=== PATIENT | female | born 1960 | race Caucasian/White ===

== ENCOUNTER → 2020-12-09 | Outpatient (CLI) | payer SELFPAY ==
--- NOTE | 2020-12-10 12:04 | MM ---
Reason for exam: clinical finding. Last mammogram was performed 6 years and 4 months ago. History: Took hormonal contraceptives for 5 years beginning at age 21. Indicated problem(s): lump or thickening in the right breast. Physical Findings: Nurse Summary: 0.5cm nodule in the right breast at 8 o'clock (nurse db). MG Diagnostic Mammo w CAD EMMANUEL Bilateral CC and MLO view(s) were taken. Spot compression CC view(s) were taken of the right breast. Prior study comparison: August 04, 2014, mammogram, performed at [facility]. The breast tissue is heterogeneously dense. This may lower the sensitivity of mammography. Finding #1: There is a typically benign 6 mm circumscribed round mass located 9 cm from the nipple in the left breast. Finding #2: There are typically benign coarse calcifications in the outer quadrant, middle position of the right breast. Focal asymmetry right medial CC, disperses. These results were verbally communicated with the patient and result sheet given to the patient on 12/09/20. ASSESSMENT: Incomplete: need additional imaging evaluation, BI-RAD 0 RECOMMENDATION: Ultrasound of the right breast. (palpable)
--- NOTE | 2020-12-10 12:06 | USB ---
Reason for exam: additional evaluation requested from abnormal screening. History: Took hormonal contraceptives for 5 years beginning at age 21. US Breast Limited RT Right limited breast ultrasound including focal area of concern, retroareolar and axilla demonstrates a 5 x 3 x 6mm oval, solid, hypoechoic lesion at the subareolar position. These results were verbally communicated with the patient and result sheet given to the patient on 12/09/20. ASSESSMENT: Suspicious, BI-RAD 4 RECOMMENDATION: Ultrasound core biopsy of the right breast. (right ultrasound nodule) Called Dr. Pichardo's office with mammographic findings and has scheduled an appointment for the patient for 01/21/21 at 8:[address] Lake. Biopsy scheduled for 12/24/20 at 1:00. PRELIMINARY REPORT CALLED AND FAXED TO DR. LAKE ON 12/10/20.
== END | disposition home or self-care (01) ==
LOC: RADMAMWWP 10:20
PROVIDERS: ATTEND Obstetrics & Gynecology
DX: N63.20 Unspecified lump in the left breast, unspecified quadrant (principal); R92.1 Mammographic calcification found on diagnostic imaging of breast
CPT/HCPCS: 77066

== ENCOUNTER → 2020-12-24 | Day surgery (SDC) | payer SELFPAY ==
[2020-12-24 12:30] VITALS: RESP 16; TEMP 97.4
--- NOTE | 2020-12-24 13:44 | USB ---
EXAMINATION TYPE: US biopsy breast VAD RT DATE OF EXAM: 12/24/2020 CLINICAL HISTORY: N63 BREAST LUMP/MASS. TECHNIQUE: Ultrasound guided vaccuum assisted core biopsy of right breast. COMPARISON: 12/09/2020 ultrasound FINDINGS: The ultrasound guided core biopsy procedure was explained to the patient. The risks, benefits, alternatives were discussed. An informed consent was then obtained. Timeout was performed. The patient was placed in supine positioning for imaging and for the procedure. The overlying skin was prepped with betadine and sterilely draped in usual sterile fashion. Lidocaine 1% was used as anesthetic into the skin and deeper breast tissue up to area of concern in the breast. A small skin tabitha was made with surgical scalpel. The mammotome biopsy device was positioned with difficulty due to thick resistance at the level of the ultrasound abnormality. Successful positioning was performed. Under ultrasound guidance, a 12-gauge vacuum assisted biopsy device was used to obtain 5 core samples. A biopsy clip was left in lesion. Wing clip was placed. There was some bleeding following the procedure. Good hemostasis was obtained with direct pressure. Discharge instructions were discussed with the patient. The patient will follow up with the referring physician for results. Postprocedure mammogram: The patient was transferred to mammography for physician ordered post procedure mammogram for clip placement verification. The clip is in the expected region of the biopsy. The patient tolerated the procedure well without any immediate complication. The patient was discharged to home in stable condition. IMPRESSION: 1. Successful ultrasound guided biopsy right breast. Recommendations: 1. Recommendations are pending pathology results. Pathology Results: Benign RIGHT BREAST, ULTRASOUND GUIDED CORE BIOPSY: Fibrocystic changes including fibrosis and small cysts. Recommendation Follow up ultrasound of the right breast in 6 months. ROJELIO
[2020-12-24 14:06] VITALS: BP 117/77; PULSE 59
== END ==
LOC: RADUSWWP 12:02
PROVIDERS: ATTEND Surgery
DX: N60.11 Diffuse cystic mastopathy of right breast (principal); R92.8 Other abnormal and inconclusive findings on diagnostic imaging of breast; Z88.0 Allergy status to penicillin
CPT/HCPCS: 88305; 77065; 19083; A4648; J2001

== ENCOUNTER 2024-05-20 14:43 | Emergency (ER) | payer OTHER ==
[2024-05-20 16:06] LABS: Appearance,Urine Turbid (Clear); Bilirubin,Urine Negative (Negative); Blood,Urine Large (Negative); Color,Urine Red; Glucose,Urine (UA) Negative (Negative); Ketones,Urine Negative (Negative); Leukocyte Esterase,Urine Large (Negative); Nitrite,Urine Negative (Negative); Protein,Urine 2+ (Negative); RBC,Urine >182 /hpf (0-5); Urobilinogen,Urine <2.0 mg/dL (<2.0); WBC,Urine >182 /hpf (0-5)
[2024-05-20 16:11] LABS: Specific Gravity,Urine 1.018 (1.001-1.035)
--- NOTE | 2024-05-20 16:21 | ED ---
Female Urogenital HPI - General Chief complaint: Urogenital Stated complaint: urogenital Time Seen by Provider: 05/20/24 14:58 Source: patient, RN notes reviewed Mode of arrival: ambulatory Limitations: no limitations - History of Present Illness Initial comments: 64-year-old female presents emergency department with chief complaint of urinary frequency and dysuria. Patient states she has no flank pain no fevers or chills she states that she feels like she has UTI she has had these in the past. Patient denies having associated symptoms. - Related Data Home Medications Medication Instructions Recorded Confirmed Aspirin/Acetaminophen/Caffeine 1 - 2 tab PO Q4H PRN 05/20/24 05/20/24 [Excedrin Migraine Caplet] Previous Rx's Medication Instructions Recorded Ciprofloxacin HCl [Cipro] 500 mg PO Q12HR #14 tablet 05/20/24 Phenazopyridine [Pyridium] 200 mg PO TID #6 tablet 05/20/24 Allergies Allergy/AdvReac Type Severity Reaction Status Date / Time Penicillins Allergy Swelling Verified 05/20/24 15:52 Review of Systems ROS Statement: Those systems with pertinent positive or pertinent negative responses have been documented in the HPI. ROS Other: All systems not noted in ROS Statement are negative. Past Medical History Past Medical History: No Reported History Additional Past Medical History / Comment(s): patient has a history of hypoglycemia History of Any Multi-Drug Resistant Organisms: None Reported Past Surgical History: Tonsillectomy, Tubal Ligation Additional Past Surgical History / Comment(s): HX AT AGE 4 OF ANEURYSM IN RT LEG Past Anesthesia/Blood Transfusion Reactions: No Reported Reaction Additional Past Anesthesia/Blood Transfusion Reaction / Comment(s): pt has had a total of four blood transfusions from 2 separate donors (all in the same day) with no reaction. Past Psychological History: No Psychological Hx Reported Smoking Status: Former smoker Past Alcohol Use History: None Reported Past Drug Use History: None Reported - Past Family History Mother Family Medical History: Unable to Obtain Additional Family Medical History / Comment(s): PT WAS ADOPTED STATES DOES NOT KNOW BIOLOGICAL FAMILY HX General Exam Limitations: no limitations General appearance: alert, in no apparent distress Head exam: Present: atraumatic, normocephalic, normal inspection Respiratory exam: Present: normal lung sounds bilaterally. Absent: respiratory distress, wheezes, rales, rhonchi, stridor Cardiovascular Exam: Present: regular rate, normal rhythm, normal heart sounds. Absent: systolic murmur, diastolic murmur, rubs, gallop, clicks GI/Abdominal exam: Present: soft, normal bowel sounds. Absent: distended, tende rness, guarding, rebound, rigid Back exam: Absent: CVA tenderness (R), CVA tenderness (L) Neurological exam: Present: alert Course Vital Signs 05/20/24 14:49 Temperature 97.7 F Pulse Rate 90 Respiratory 18 Rate Blood Pressure 121/77 O2 Sat by Pulse 99 Oximetry Medical Decision Making - Medical Decision Making Was pt. sent in by a medical professional or institution (, PA, INTEGRATED MARKETING INTERN, urgent care, hospital, or skilled nursing...) When possible be specific @ -No Did you speak to anyone other than the patient for history (EMS, parent, family, police, friend...)? What history was obtained from this source @ -No Did you review nursing and triage notes (agree or disagree)? Why? @ -I reviewed and agree with nursing and triage notes Were old charts reviewed (outside hosp., previous admission, EMS record, old EKG, old radiological studies, urgent care reports/EKG's, skilled nursing records)? Report findings @ -No old charts were reviewed Differential Diagnosis (chest pain, altered mental status, abdominal pain women, abdominal pain men, vaginal bleeding, weakness, fever, dyspnea, syncope, headache, dizziness, GI bleed, back pain, seizure, CVA, palpatations, mental health, musculoskeletal)? @Dysuria, UTI, you differential Abdominal Pain Women: Appendicitis, Cholecystitis, diverticulosis, ischemic bowel, pancreatitis, hepatitis, UTI, gastroenteritis, AAA, incarcerated hernia, bowel obstruction, constipation, inflammatory bowel, hepatitis, peptic ulcer disease, splenic infarction, perforated viscus, vulvitis, ovarian torsion, PID, kidney stone, placenta abruption, this is not meant to be an all-inclusive list EKG interpreted by me (3pts min.). @ -[None X-rays interpreted by me (1pt min.). @ -None done CT interpreted by me (1pt min.). @ -None done U/S interpreted by me (1pt. min.). @ -None done What testing was considered but not performed or refused? (CT, X-rays, U/S, labs)? Why? @ -Consider CT sarcoma hematuria but patient has no flank pain or symptoms consistent with stone What meds were considered but not given or refused? Why? @ -None Did you discuss the management of the patient with other professionals (professionals i.e. , PA, INTEGRATED MARKETING INTERN, lab, RT, psych nurse, social work case manager, metal alloy scientist, teacher, [employer] officer, family caseworker)? Give summary @ -No Was smoking cessation discussed for >3mins.? @ -No Was critical care preformed (if so, how long)? @ -No Were there social determinants of health that impacted care today? How? (Homelessness, low income, unemployed, alcoholism, drug addiction, transportation, low edu. Level, literacy, decrease access to med. care, nursing home, rehab)? @ -No Was there de-escalation of care discussed even if they declined (Discuss DNR or withdrawal of care, Hospice)? DNR status @ -No What co-morbidities impacted this encounter? (DM, HTN, Smoking, COPD, CAD, Cancer, CVA, ARF, Chemo, Hep., AIDS, mental health diagnosis, sleep apnea, morbid obesity)? @ -None Was patient admitted / discharged? Hospital course, mention meds given and route, prescriptions, significant lab abnormalities, going to OR and other pertinent info. @ -Discharge patient presented for urinary frequency and dysuria. Patient has evidence UTI patient given charge and stable addition she does have notable hematuria but no pain or symptoms consistent with stone. We discussed recheck urinalysis. Undiagnosed new problem with uncertain prognosis? @ -No Drug Therapy requiring intensive monitoring for toxicity (Heparin, Nitro, Insulin, Cardizem)? @ -No Were any procedures done? @ -No Diagnosis/symptom? @ -UTI Acute, or Chronic, or Acute on Chronic? @ -Acute Uncomplicated (without systemic symptoms) or Complicated (systemic symptoms)? @ -Uncomplicated Side effects of treatment? @ -No Exacerbation, Progression, or Severe Exacerbation? @ -No Poses a threat to life or bodily function? How? (Chest pain, [place], [place], pneumonia, PE, COPD, DKA, ARF, appy, cholecystitis, CVA, Diverticulitis, Homicidal, Suicidal, threat to staff... and all critical care pts) @ -No - Lab Data Lab Results 05/20/24 Range/Units 14:53 Urine Color Red Urine Appearance Turbid H (Clear) Urine pH 6.0 (5.0-8.0) Ur Specific [place] 1.018 (1.001-1.035) Urine Protein 2+ H (Negative) Urine Glucose (UA) Negative (Negative) Urine Ketones Negative (Negative) Urine Blood Large H (Negative) Urine Nitrite Negative (Negative) Urine Bilirubin Negative (Negative) Urine Urobilinogen <2.0 (<2.0) mg/dL Ur Leukocyte Esterase Large H (Negative) Urine RBC >182 H (0-5) /hpf Urine WBC >182 H (0-5) /hpf Disposition Clinical Impression: Urinary tract infection Disposition: HOME SELF-CARE Condition: Stable Instructions (If sedation given, give patient instructions): Urinary Tract Infection in Women (ED) Additional Instructions: Please return to the Emergency Department if symptoms worsen or any other concerns. Prescriptions: Ciprofloxacin HCl [Cipro] 500 mg PO Q12HR #14 tablet Phenazopyridine [Pyridium] 200 mg PO TID #6 tablet Is patient prescribed a controlled substance at d/c from ED?: No Referrals: None,Stated [Primary Care Provider] - 1-2 days Time of Disposition: 16:20
[2024-05-20] MEDS: PHENAZOPYRIDINE 200 MG TAB PO STA (16:34)
[2024-05-20] MEDS: CIPROFLOXACIN HCL 500 MG TAB PO STA (16:34)
[2024-05-20 16:45] VITALS: BP 130/78; PULSE 84; RESP 20; TEMP 98
== END 2024-05-20 16:46 | disposition home or self-care (01) ==
LOC: EC 14:43
DX: N39.0 Urinary tract infection, site not specified (principal); Z87.891 Personal history of nicotine dependence; Z88.0 Allergy status to penicillin
CPT/HCPCS: 81001; 87086; 99283